=== PATIENT | female | born 1985 | race Hispanic/Latino ===

== ENCOUNTER 2017-03-04 23:22 | Observation (INO) | payer OTHER ==
[~2017-03-04] VITALS: Ht 147.3 cm; Wt 64.9 kg
[2017-03-04 23:58] LABS: APPEARANCE,URINE Cloudy (CLEAR); BILIRUBIN,URINE Negative (NEGATIVE); COLOR,URINE Yellow (YELLOW); GLUCOSE, URINE (UA) TRACE mg/dL (NEGATIVE); KETONES,URINE Negative (NEGATIVE); LEUKOCYTE ESTERASE ,URINE Trace (NEGATIVE); NITRATE,URINE Negative (NEGATIVE); OCCULT BLOOD,URINE Negative (NEGATIVE); PROTEIN,URINE Trace (NEGATIVE)
[2017-03-05 00:06] LABS: RBC,URINE 0-1 /HPF (0-1)
[2017-03-05 00:07] LABS: BACTERIA,URINE Many /HPF (None Seen); MUCUS,URINE Rare LPF (None Seen); SQUAMOUS EPITHELIAL CELL,UR Many /LPF (0-2)
== END 2017-03-05 00:30 | disposition home or self-care (01) ==
LOC: EDH 23:22 → LDH 23:39
PROVIDERS: ADMIT Obstetrics & Gynecology; ATTEND Obstetrics & Gynecology
DX: O46.93 Antepartum hemorrhage, unspecified, third trimester (principal); O62.9 Abnormality of forces of labor, unspecified; O26.893 Other specified pregnancy related conditions, third trimester; R10.9 Unspecified abdominal pain; Z3A.32 32 weeks gestation of pregnancy
CPT/HCPCS: 81001; 99285; G0378

== ENCOUNTER 2017-03-14 09:48 | Observation (INO) | payer OTHER ==
[2017-03-14 10:52] LABS: BASOPHILS % (AUTO) 0.5 % (0.0-5.0); EOSINOPHILS % (AUTO) 2.2 % (0.0-8.0); MEAN CORPUSCULAR HEMOGLOBIN 28.1 pg (27.0-33.0); MEAN CORPUSCULAR HGB CONC 34.1 g/dL (32.0-36.0); MEAN CORPUSCULAR VOLUME 82.4 fL (79-99); MONOCYTES % (AUTO) 6.8 % (3.0-13.0); NEUTROPHILS % (AUTO) 59.5 % (40.0-77.0); PLATELET COUNT (AUTO) 236 K/uL (130-400); RED BLOOD CELL COUNT(AUTO) 4.13 MIL/uL (4.00-5.50); RED CELL DISTRIBUTION WIDTH 13.5 % (11.0-15.5); WHITE BLOOD COUNT (AUTO) 8.3 K/uL (4.8-10.8)
[2017-03-14 10:59] LABS: APPEARANCE,URINE Cloudy (CLEAR); BILIRUBIN,URINE Negative (NEGATIVE); COLOR,URINE Yellow (YELLOW); GLUCOSE, URINE (UA) Negative (NEGATIVE); KETONES,URINE Negative (NEGATIVE); LEUKOCYTE ESTERASE ,URINE Small (NEGATIVE); NITRATE,URINE Negative (NEGATIVE); OCCULT BLOOD,URINE Negative (NEGATIVE); PROTEIN,URINE Negative (NEGATIVE)
[2017-03-14 11:05] LABS: BACTERIA,URINE Moderate /HPF (None Seen); RBC,URINE 0-1 /HPF (0-1)
[2017-03-14 11:06] LABS: MUCUS,URINE Moderate LPF (None Seen); SQUAMOUS EPITHELIAL CELL,UR Many /LPF (0-2)
[2017-03-14 11:11] LABS: INR 0.89 (0.85-1.15); PARTIAL THROMBOPLASTIN TIME 27.8 SEC (26.3-35.5); PROTHROMBIN TIME 9.4 SEC (9.6-11.6)
[2017-03-14 11:13] LABS: CREATININE 0.6 mg/dL (0.5-1.5); POTASSIUM 3.7 mmol/L (3.5-5.1)
[2017-03-14 11:16] LABS: ALBUMIN 2.4 g/dL (3.5-5.0); BILIRUBIN,TOTAL 0.3 mg/dL (0.2-1.0); TOTAL PROTEIN, SERUM 6.5 g/dL (6.0-8.3); URIC ACID 4.4 mg/dL (2.6-7.2)
== END 2017-03-14 11:50 | disposition home or self-care (01) ==
LOC: LDH 09:48
PROVIDERS: ADMIT Obstetrics & Gynecology; ATTEND Obstetrics & Gynecology
DX: O26.893 Other specified pregnancy related conditions, third trimester (principal); R03.0 Elevated blood-pressure reading, without diagnosis of hypertension; Z3A.34 34 weeks gestation of pregnancy
CPT/HCPCS: 36415; 80053; 81001; 84550; 85025; 85384; 85610; 85730; G0378 ×3

== ENCOUNTER 2017-03-17 15:25 | Observation (INO) | payer OTHER | END 2017-03-17 17:37 | disposition home or self-care (01) | LOC: LDH 15:25 | PROVIDERS: ADMIT Obstetrics & Gynecology; ATTEND Obstetrics & Gynecology | DX: O62.9 Abnormality of forces of labor, unspecified (principal); Z3A.34 34 weeks gestation of pregnancy | CPT/HCPCS: G0378 ×3 ==

== ENCOUNTER 2017-04-02 03:30 | Observation (INO) | payer OTHER ==
[~2017-04-02] VITALS: Ht 147.3 cm; Wt 89.8 kg
[2017-04-02 04:06] LABS: APPEARANCE,URINE Clear (CLEAR); BILIRUBIN,URINE Negative (NEGATIVE); COLOR,URINE Yellow (YELLOW); GLUCOSE, URINE (UA) Negative (NEGATIVE); KETONES,URINE Negative (NEGATIVE); LEUKOCYTE ESTERASE ,URINE Negative (NEGATIVE); NITRATE,URINE Negative (NEGATIVE); OCCULT BLOOD,URINE Negative (NEGATIVE); PH,URINE 6.5 (5.0-8.0); PROTEIN,URINE Negative (NEGATIVE); UROBILINOGEN,URINE 0.2 mg/dL (0.2-1.0)
== END 2017-04-02 04:45 | disposition home or self-care (01) ==
LOC: EDH 03:30 → LDH 03:35
PROVIDERS: ADMIT Obstetrics & Gynecology; ATTEND Obstetrics & Gynecology
DX: O60.03 Preterm labor without delivery, third trimester (principal); O26.893 Other specified pregnancy related conditions, third trimester; R10.2 Pelvic and perineal pain; M54.9 Dorsalgia, unspecified; Z3A.36 36 weeks gestation of pregnancy
CPT/HCPCS: 81003; 99285; G0378

== ENCOUNTER 2017-04-10 05:17 | Observation (INO) | payer OTHER ==
[2017-04-10 06:20] LABS: APPEARANCE,URINE CLEAR (CLEAR); BILIRUBIN,URINE NEGATIVE (NEGATIVE); COLOR,URINE YELLOW (YELLOW); GLUCOSE, URINE (UA) NEGATIVE (NEGATIVE); KETONES,URINE NEGATIVE (NEGATIVE); LEUKOCYTE ESTERASE ,URINE NEGATIVE (NEGATIVE); NITRATE,URINE NEGATIVE (NEGATIVE); OCCULT BLOOD,URINE NEGATIVE (NEGATIVE); PH,URINE 6.5 (5.0-8.0); PROTEIN,URINE NEGATIVE (NEGATIVE); UROBILINOGEN,URINE 0.2 mg/dL (0.2-1.0)
== END 2017-04-10 08:43 | disposition home or self-care (01) ==
LOC: EDH 05:17 → LDH 05:18
PROVIDERS: ADMIT Obstetrics & Gynecology; ATTEND Obstetrics & Gynecology
DX: O26.893 Other specified pregnancy related conditions, third trimester (principal); O99.89 Other specified diseases and conditions complicating pregnancy, childbirth and the puerperium; R10.9 Unspecified abdominal pain; M54.9 Dorsalgia, unspecified; Z3A.38 38 weeks gestation of pregnancy
CPT/HCPCS: 81003; 99285; G0378 ×3

== ENCOUNTER 2017-04-15 00:13 | Observation (INO) | payer OTHER ==
[2017-04-15 01:01] LABS: APPEARANCE,URINE Cloudy (CLEAR); BILIRUBIN,URINE Negative (NEGATIVE); COLOR,URINE Yellow (YELLOW); GLUCOSE, URINE (UA) Negative (NEGATIVE); KETONES,URINE Negative (NEGATIVE); LEUKOCYTE ESTERASE ,URINE Small (NEGATIVE); NITRATE,URINE Negative (NEGATIVE); OCCULT BLOOD,URINE Negative (NEGATIVE); PROTEIN,URINE Negative (NEGATIVE)
[2017-04-15 01:08] LABS: BACTERIA,URINE Few /HPF (None Seen); MUCUS,URINE Few LPF (None Seen); RBC,URINE None Seen /HPF (0-1); SQUAMOUS EPITHELIAL CELL,UR Moderate /LPF (0-2); WBC,URINE 0-1 /HPF (0-1)
== END 2017-04-15 01:50 | disposition home or self-care (01) ==
LOC: EDH 00:13 → LDH 00:14
PROVIDERS: ADMIT Obstetrics & Gynecology; ATTEND Obstetrics & Gynecology
DX: O62.9 Abnormality of forces of labor, unspecified (principal); Z3A.38 38 weeks gestation of pregnancy
CPT/HCPCS: 81001; 99285; G0378 ×2

== ENCOUNTER 2017-04-17 05:46 | Inpatient (IN) | payer OTHER ==
[~2017-04-17] VITALS: Ht 147.3 cm; Wt 90.3 kg
[2017-04-17] MEDS ORDERED: OXYTOCIN 10 USP UNITS/ML 20 UNIT in LACTATED RINGERS 1000ML 1,000 ML IV SCH (06:00)
[2017-04-17 06:29] LABS: APPEARANCE,URINE Cloudy (CLEAR); BILIRUBIN,URINE Negative (NEGATIVE); COLOR,URINE Yellow (YELLOW); GLUCOSE, URINE (UA) Negative (NEGATIVE); KETONES,URINE Negative (NEGATIVE); LEUKOCYTE ESTERASE ,URINE Small (NEGATIVE); NITRATE,URINE Negative (NEGATIVE); OCCULT BLOOD,URINE Negative (NEGATIVE); PROTEIN,URINE Negative (NEGATIVE)
[2017-04-17] MEDS: LACTATED RINGERS 1000ML 1,000 ML IV PRN ×2 (06:58→11:58)
[2017-04-17 07:07] LABS: MEAN CORPUSCULAR HEMOGLOBIN 27.3 pg (27.0-33.0); MEAN CORPUSCULAR HGB CONC 33.5 g/dL (32.0-36.0); MEAN CORPUSCULAR VOLUME 81.4 fL (79-99); PLATELET COUNT (AUTO) 248 K/uL (130-400); RED BLOOD CELL COUNT(AUTO) 4.18 MIL/uL (4.00-5.50); WHITE BLOOD COUNT (AUTO) 9.8 K/uL (4.8-10.8)
[2017-04-17] MEDS ORDERED: LACTATED RINGERS 1000ML 1,000 ML IV ONE (07:17)
[2017-04-17] MEDS ORDERED: OXYTOCIN 10 USP UNITS/ML ONE (07:18)
[2017-04-17 07:22] LABS: BACTERIA,URINE Many /HPF (None Seen); MUCUS,URINE Rare LPF (None Seen); RBC,URINE 0-1 /HPF (0-1); SQUAMOUS EPITHELIAL CELL,UR Many /LPF (0-2)
[2017-04-17] MEDS ORDERED: LACTATED RINGERS 500 ML 500 ML IV PRN (08:30)
[2017-04-17] MEDS ORDERED: BUTORPHANOL TARTRATE 2 MG/ML IVP ONE (08:30)
[2017-04-17] MEDS ORDERED: EPHEDRINE SULFATE 50 MG/ML AMPULE IVP PRN ×2 (08:30→17:15)
[2017-04-17] MEDS ORDERED: NALOXONE HCL 0.4 MG/1 ML ML IV PRN (08:30)
[2017-04-17] MEDS ORDERED: BUTORPHANOL TARTRATE 2 MG/ML IVP SCH (08:45)
[2017-04-17] MEDS ORDERED: CEFAZOLIN SODIUM 1 GM VIAL ONE (14:39)
[2017-04-17] MEDS ORDERED: CALDOLOR 800MG+NS 250ML 250 ML IV ONE (15:03)
[2017-04-17] MEDS ORDERED: METHYLERGONOVINE MALEATE 0.2 MG/1 ML ML ONE (15:03)
[2017-04-17] MEDS ORDERED: MISOPROSTOL 200 MCG TABLET ONE (15:13)
[2017-04-17] MEDS ORDERED: OXYTOCIN-LR 20 UNITS/1000 ML 1,000 ML IV PRN (15:48)
[2017-04-17] MEDS: IBUPROFEN 800 MG TAB PO SCH ×2 (16:00→23:55)
[2017-04-17] MEDS ORDERED: LANOLIN 30GM OINTMENT TP PRN (16:00)
[2017-04-17] MEDS ORDERED: SODIUM CHLORIDE 0.9% 10 ML VIAL IVP PRN (16:00)
[2017-04-17] MEDS ORDERED: HYDROCODONE/ACETAMINOPHEN 5/325 MG TAB PO PRN ×4 (16:00→17:15)
[2017-04-17] MEDS ORDERED: BISACODYL 10 MG SUPP.RECT RC PRN (16:00)
[2017-04-17] MEDS ORDERED: ACETAMINOPHEN EXTRA STRENGTH 500 MG TABLET PO PRN (16:00)
[2017-04-17] MEDS ORDERED: DIPHENHYDRAMINE HCL 25 MG CAPSULE PO PRN (16:00)
[2017-04-17] MEDS: MEASLES/MUMPS/RUBELLA VACCINE, LIVE 0.5 ML/VIAL SQ SCH (16:00)
[2017-04-17] MEDS: DIPH,PERTUSS(ACELL),TET VAC/PF 0.5 ML VIAL IM SCH (16:00)
[2017-04-17] MEDS ORDERED: HYDROCODONE/ACETAMINOPHEN 5/325 MG TAB ONE (16:37)
[2017-04-17 17:13] VITALS: BP 124/74
[2017-04-17] MEDS ORDERED: METOCLOPRAMIDE 10 MG/2 ML VIAL IVP PRN (17:15)
[2017-04-17] MEDS ORDERED: NALOXONE HCL 0.4 MG/1 ML ML IVP PRN (17:15)
[2017-04-17] MEDS ORDERED: MORPHINE SULFATE 2 MG/ML 1ML SYG IVP PRN (17:15)
[2017-04-17] MEDS ORDERED: ROPIVACAINE 0.2% 100ML EP SCH (17:15)
[2017-04-17] MEDS ORDERED: DiphenhydrAMINE HCL 50 MG/ML VIAL IVP PRN (17:15)
[2017-04-17] MEDS ORDERED: ONDANSETRON HCL 4 MG/2 ML 8 MG in SODIUM CHLORIDE 0.9% 50 ML IVP NR (17:15)
[2017-04-17] MEDS ORDERED: PROMETHAZINE HCL 25 MG/ML 1ML AMPULE IM PRN (17:15)
[2017-04-17] MEDS ORDERED: ONDANSETRON HCL 4 MG/2 ML VIAL IVP PRN ×2 (17:15)
[2017-04-17] MEDS ORDERED: PREN-154 PO (17:40)
[2017-04-17 19:21] VITALS: BP 145/78
[2017-04-17] MEDS: PROMETHAZINE HCL 25 MG/ML 1ML AMPULE IM PRN (20:26)
[2017-04-17] MEDS: MEPERIDINE-PF 75 MG/ML SYG IM PRN (20:26)
[2017-04-17 23:18] VITALS: BP 136/80
[2017-04-17] MEDS: SIMETHICONE 80 MG TAB.CHEW PO PRN (23:41)
[2017-04-17] MEDS: DOCUSATE SODIUM 100 MG CAP PO SCH (23:41)
[2017-04-17] MEDS: DEXTROSE 5 %-0.45 % NACL 1,000 ML IV PRN (23:41)
[2017-04-17] MEDS: CALDOLOR 800MG+NS 250ML 250 ML IV SCH (23:41)
[2017-04-18 03:07] VITALS: BP 123/68
[2017-04-18] MEDS: PROMETHAZINE HCL 25 MG/ML 1ML AMPULE IM PRN (03:18)
[2017-04-18] MEDS: MEPERIDINE-PF 75 MG/ML SYG IM PRN (03:19)
[2017-04-18 06:49] LABS: HEMATOCRIT 28.3 % (36-48); MEAN CORPUSCULAR HEMOGLOBIN 27.8 pg (27.0-33.0); MEAN CORPUSCULAR HGB CONC 33.9 g/dL (32.0-36.0); MEAN CORPUSCULAR VOLUME 81.9 fL (79-99); PLATELET COUNT (AUTO) 205 K/uL (130-400); RED BLOOD CELL COUNT(AUTO) 3.45 MIL/uL (4.00-5.50); RED CELL DISTRIBUTION WIDTH 14.6 % (11.0-15.5); WHITE BLOOD COUNT (AUTO) 19.1 K/uL (4.8-10.8)
[2017-04-18] MEDS: DEXTROSE 5 %-0.45 % NACL 1,000 ML IV PRN (06:59)
[2017-04-18 07:46] VITALS: BP 135/85
[2017-04-18] MEDS: DOCUSATE SODIUM 100 MG CAP PO SCH ×2 (07:50→21:18)
[2017-04-18] MEDS: CALDOLOR 800MG+NS 250ML 250 ML IV SCH (07:51)
[2017-04-18] MEDS: LIDOCAINE 5% TOPICAL PATCH TP SCH (07:52)
[2017-04-18] MEDS: IBUPROFEN 800 MG TAB PO SCH ×2 (08:00→15:42)
[2017-04-18 08:19] LABS: HEPATITIS Bs ANTIGEN SCREEN P Negative (Negative)
[2017-04-18 11:27] VITALS: BP 121/72
[2017-04-18] MEDS: ACETAMINOPHEN-CODEINE 300/30MG TAB PO PRN ×2 (12:10→23:50)
[2017-04-18 15:29] VITALS: BP 120/73
[2017-04-18] MEDS: SIMETHICONE 80 MG TAB.CHEW PO PRN ×3 (15:40→21:18)
[2017-04-18] MEDS: DIPH,PERTUSS(ACELL),TET VAC/PF 0.5 ML VIAL IM SCH (16:00)
[2017-04-18] MEDS: MEASLES/MUMPS/RUBELLA VACCINE, LIVE 0.5 ML/VIAL SQ SCH (16:00)
[2017-04-18 19:36] VITALS: BP 125/82
[2017-04-18 23:29] VITALS: BP 129/76
[2017-04-19] MEDS: IBUPROFEN 800 MG TAB PO SCH ×2 (00:59→09:13)
[2017-04-19 03:11] VITALS: BP 131/73
[2017-04-19 07:49] VITALS: BP 131/79
[2017-04-19] MEDS: LIDOCAINE 5% TOPICAL PATCH TP SCH (09:13)
[2017-04-19] MEDS: DOCUSATE SODIUM 100 MG CAP PO SCH (09:13)
[2017-04-19 11:33] VITALS: BP 130/78
== END 2017-04-19 12:30 | disposition home or self-care (01) | DRG 765 ==
LOC: LDH 05:46 → WSH 17:10
PROVIDERS: ADMIT Obstetrics & Gynecology; ATTEND Obstetrics & Gynecology
PROC: 3E0234Z Introduction of Serum, Toxoid and Vaccine into Muscle, Percutaneous Approach (ICD-10-PCS; 2017-04-17)
PROC: 3E0234Z Introduction of Serum, Toxoid and Vaccine into Muscle, Percutaneous Approach (ICD-10-PCS; 2017-04-17)
PROC: 10D00Z1 Extraction of Products of Conception, Low, Open Approach (ICD-10-PCS; principal; 2017-04-17 15:52)
DX: O76 Abnormality in fetal heart rate and rhythm complicating labor and delivery (principal); D62 Acute posthemorrhagic anemia; O32.4XX0 Maternal care for high head at term, not applicable or unspecified; O62.2 Other uterine inertia; O69.81X0 Labor and delivery complicated by cord around neck, without compression, not applicable or unspecified; Z37.0 Single live birth; Z3A.39 39 weeks gestation of pregnancy; Z23 Encounter for immunization
CPT/HCPCS: 36415; 59510; 81001; 85027; 86592; 86850; 86900; 86901; 87340; A4344; A4606; J0595; J0690; J1741; J2175; J2210; J2550; J2590; J7120

== ENCOUNTER → 2022-03-08 | Outpatient (CLI) | payer OTHER ==
[~2022-03-08] MED LIST: PREN-154 PO
== END | disposition home or self-care (01) ==
LOC: RAH 13:34
PROVIDERS: ATTEND Obstetrics & Gynecology
DX: N64.4 Mastodynia (principal); N63.10 Unspecified lump in the right breast, unspecified quadrant; N63.20 Unspecified lump in the left breast, unspecified quadrant

== ENCOUNTER 2022-08-28 20:02 | Emergency (ER) | payer OTHER ==
[~2022-08-28] VITALS: Ht 152.4 cm; Wt 74.8 kg
[2022-08-28] MEDS: 0.9%NACL 1000ML 1,000 ML IV SCH (20:41)
[2022-08-28 20:43] LABS: BASOPHILS % (AUTO) 0.6 % (0.0-5.0); EOSINOPHILS % (AUTO) 1.3 % (0.0-8.0); HEMATOCRIT 41.8 % (36-48); MEAN CORPUSCULAR HEMOGLOBIN 29.3 pg (27.0-33.0); MEAN CORPUSCULAR VOLUME 86.2 fL (79-99); MONOCYTES % (AUTO) 6.3 % (3.0-13.0); NEUTROPHILS % (AUTO) 68.5 % (40.0-77.0); PLATELET COUNT (AUTO) 307 K/uL (130-400); RED BLOOD CELL COUNT(AUTO) 4.85 MIL/uL (4.00-5.50); RED CELL DISTRIBUTION WIDTH 12.7 % (11.0-15.5); WHITE BLOOD COUNT (AUTO) 7.8 K/uL (4.8-10.8)
[2022-08-28] MEDS ORDERED: ONDANSETRON 4MG INJ IVP ONE (21:00)
[2022-08-28 21:21] LABS: ALBUMIN 3.2 g/dL (3.5-5.0); CREATININE 0.7 mg/dL (0.5-1.5); POTASSIUM 4.9 mmol/L (3.5-5.1); TOTAL PROTEIN, SERUM 7.8 g/dL (6.0-8.3)
[2022-08-29] MEDS ORDERED: MORPHINE 4 MG SYG IVP ONE
[2022-08-29] MEDS ORDERED: ONDANSETRON 4MG INJ IVP ONE
[2022-08-29 00:25] LABS: APPEARANCE,URINE CLEAR (CLEAR); BILIRUBIN,URINE NEGATIVE (NEGATIVE); COLOR,URINE LIGHT-YELLOW (YELLOW); GLUCOSE, URINE (UA) NEGATIVE (NEGATIVE); KETONES,URINE NEGATIVE (NEGATIVE); LEUKOCYTE ESTERASE ,URINE 25 Leu/uL (NEGATIVE); NITRATE,URINE NEGATIVE (NEGATIVE); OCCULT BLOOD,URINE NEGATIVE (NEGATIVE); PH,URINE 6.5 (5.0-8.0); PROTEIN,URINE NEGATIVE (NEGATIVE); UROBILINOGEN,URINE 0.2 mg/dL (0.2-1.0)
[2022-08-29 00:31] LABS: BACTERIA,URINE RARE /HPF (None Seen); MUCUS,URINE RARE LPF (None Seen); SQUAMOUS EPITHELIAL CELL,UR MOD /HPF (0-2); WBC,URINE 0-1 /HPF (0-1)
[2022-08-29 00:32] LABS: HCG,QUALITATIVE URINE NEGATIVE (NEGATIVE)
[2022-08-29] MEDS ORDERED: IOHEXOL-350 75 ML VIAL IV ONE (01:00)
[2022-08-29] MEDS ORDERED: METO-296 PO (01:53)
[2022-08-29] MEDS ORDERED: CEFTRIAXONE 2GM VIAL IVPB ONE (02:00)
[2022-08-29] MEDS: 0.9%NACL 1000ML 1,000 ML IV SCH (02:02)
[2022-08-29 02:03] VITALS: BP 126/60
== END 2022-08-29 02:58 | disposition home or self-care (01) ==
LOC: EDH 20:02
DX: K57.32 Diverticulitis of large intestine without perforation or abscess without bleeding (principal); R11.2 Nausea with vomiting, unspecified; Z90.49 Acquired absence of other specified parts of digestive tract
CPT/HCPCS: 99285; 74178; 96374; 80053; 83690; 85025; 83605; 81001; 81025; 36415; 96375; 96376; J2405 ×2; J0696; Q9967

== ENCOUNTER → 2023-07-13 | Outpatient (CLI) | payer OTHER ==
[~2023-07-13] MED LIST changes: +METO-296 PO
== END | disposition home or self-care (01) ==
LOC: RAH 12:19
PROVIDERS: ATTEND Internal Medicine
DX: M54.12 Radiculopathy, cervical region (principal); M41.9 Scoliosis, unspecified; M54.14 Radiculopathy, thoracic region
CPT/HCPCS: 72082